=== PATIENT | male | born 1970 | race Caucasian/White ===

== ENCOUNTER → 2020-05-03 08:43 | Outpatient (CLI) | payer OTHER, SELFPAY ==
--- NOTE | ~2020-05-03 | XR_ITS ---
XR lumbar spine 2-3V DATE: 05/03/2020 09:06 INDICATION: Acute bilateral low back pain, right sciatica TECHNIQUE: AP, lateral, coned lateral lumbosacral views COMPARISON: None FINDINGS: No fracture or bone destruction is evident. The included lower thoracic and lumbar pedicles are intact. No spondylolisthesis. There is degenerative spurring in the lower thoracic spine. There is minimal degenerative disease at L2-3. There is moderate loss of interspace height and mild spurring at L4-5 and L5-S1 consistent with moder ate degenerative disease at these 2 levels. AP pedicle distance at L5 in particular appears relatively short; lumbar spinal stenosis is not exclu ded. The sacroiliac joints appear normal. IMPRESSION: Moderate degenerative disease at L4-5 and L5-S1, mild degenerative disease at L2-3 Cannot exclude lumbar spinal stenosis Reviewed, dictated and finalized at location B.
== END ==
PROVIDERS: PCP Physician Assistant; Visit Provider Family Medicine
DX: M54.41 Lumbago with sciatica, right side (principal); M51.37 Other intervertebral disc degeneration, lumbosacral region; M51.36 Other intervertebral disc degeneration, lumbar region
CPT/HCPCS: 72100

== ENCOUNTER 2024-05-30 05:22 | Emergency (ER) | payer BC, SELFPAY ==
[2024-05-30 05:24] VITALS: BP 126/82; PULSE 62; RESP 17; TEMP 36.3; O2SAT 100
[2024-05-30 05:57] VITALS: BP 128/81; PULSE 59; RESP 16; TEMP 36.6; O2SAT 100
--- NOTE | 2024-05-30 07:07 | ED_ITS ---
HPI - Back Pain/Injury General Chief Complaint: Back Pain/Injury Stated Complaint: lower back pain Time Seen by Provider: 05/30/24 07:05 Source: patient Mode of arrival: ambulatory Limitations: no limitations History of Present Illness HPI Narrative: Patient presents with low back pain on the left. He states he frequently has sciatica but denies any radiating nature to this pain. Pain 10/10 in severity. No abdominal pain. No paresthesias, IVDU, trauma/injury, cancer, fever, chronic steroid use, saddle anesthesia, or bowel/bladder incontinence. He took ibuprofen at approximately 10:45 and applied a transdermal patch. Patient has a PCP. Related Data Allergies Allergy/AdvReac Type Severity Reaction Status Date / Time No Known Allergies Allergy Verified 05/30/24 05:23 [facility] Past Medical History Medical History (Updated 05/31/24 @ 16:48 by Gracie Farley MD) Degeneration, intervertebral disc, lumbar Exam Narrative: GENERAL: Well-appearing, well-nourished, and in no acute distress. HEAD: Normocephalic, atraumatic. EYES: Non injected, non icteric ENT: Nares clear, no rhinorrhea or epistaxis. NECK: Supple. CHEST: Speaking in full sentences. No respiratory distress. HEART: Regular rate and rhythm. . ABDOMEN: Soft, nondistended. EXTREMITIES: Normal range of motion. No lower extremity edema. BACK: Straight leg test negative bilaterally. Demonstrates flexion and extension at the lumbar spine as well as rotational movement. No TTP of thoracic or lumbar spinous .processes which are midline w/o stepoffs. No paravertebral spasm. 5/5 bilateral strength with dorsi/plantar flexion, knee flexion/extension, hip flexion/adduction/abduction SKIN: Warm, dry, no rash. NEURO: No focal deficits. Alert and oriented x3. Sensation intact in bilateral lower extremities. Patient does have some medial thigh twitching/fasciculations during exam but not sustained. Has pain with hip flexion on the left but able to do so. PSYCH: Normal mood and affect. Course Vital Signs Vital signs: Vital Signs Temperature 97.3 F L 05/30/24 05:24 Pulse Rate 62 05/30/24 05:24 Respiratory Rate 17 05/30/24 05:24 Blood Pressure 126/82 05/30/24 05:24 Pulse Oximetry 100 05/30/24 05:24 Oxygen Delivery Room Air 05/30/24 05:24 Temperature 97.6 F 05/30/24 09:57 Pulse Rate 69 05/30/24 09:57 Respiratory Rate 16 05/30/24 09:57 Blood Pressure 117/78 05/30/24 09:57 Pulse Oximetry 100 05/30/24 09:57 Oxygen Delivery Room Air 05/30/24 05:24 MDM - Back Pain/Injury MDM Narrative Medical decision making narrative: Patient presents with low left sided back pain. States he has a history of frequent sciatica but denies any radiating quality of this pain. In the ED he is afebrile with VS Within normal limits. Back has no deformities, external skin changes, or signs of trauma. Curvature is within normal limits. No tenderness is noted on palpation of the spinous p rocesses which are midline. Lumbar paraspinal muscles are not tender under without spasm. Patient demonstrates flexion, extension, and [id number] rotation of the lumbar spine. Sensation to the lower extremities is normal bilaterally. Dorsi/plantar flexion is normal bilaterally. Straight leg raise test is negative bilaterally. They do not have any other red flags for fracture, malignancy, infection (e.g. spinal epidural abscess), or aortic/vascular: Age, no trauma, not on chronic steroids, no cancer, no fever, IV drug use, HIV, immunosuppression, abdominal pain, tearing pain, syncope, or urinary symptoms. Given this, will defer further imaging at this time. Analgesic medication ordered while in the ED and discharged with multimodal pain regimen prescriptions. Advised on follow up with PCP and ED return precautions. Differential Diagnosis Differential diagnosis: Likely lumbar radiculopathy, sciatica and strain of l umbar region Medical Records Attestation: I reviewed the patient's medical records. Medical records narrative: L spine Xray performed 2020 showed degenerative disease Discharge Plan Discharge Clinical Impression: Strain of lumbar region, Left lumbar pain Patient Disposition: Home, Self-Care Condition: Stable Instructions: Antibiotic Form, Low Back Strain (ED), Back Pain (ED), Lower Back Exercises (ED) Additional Instructions: the combination of medications, as we described,are to help balance rest with maintaining activity so you don't become more stiff/achy. Follow up with your primary care physician if not improving over 5-7 days. Return to the ER if you have increased pain in your back, you develop lower extremity weakness/numbness/paralysis, you have numbness or tingling in your private parts, or you are unable to control your ability to urinate/stool. Prescriptions: New lidocaine 4 % adhesive patch,medicated 1 patch topical DAILY PRN (Reason: pain) Qty: 10 0RF ibuprofen 600 mg tablet 600 mg PO TID PRN (Reason: pain) Qty: 30 0RF acetaminophen 500 mg capsule 1,000 mg PO Q6H PRN (Reason: pain) Qty: 30 0RF methocarbamol 750 mg tablet 750 mg PO HS Qty: 7 0RF Follow-up/Referrals: Roberta,GUALBERTO Purcell [Primary Care Provider] - Stand Alone Forms: Work/School Release IP Time of Disposition: 08:21
[2024-05-30 07:08] VITALS: BP 117/77; PULSE 57; RESP 15; O2SAT 100
[2024-05-30] MEDS: HYDROcodone/acetaminophen (*CRX) 5-325 MG TABLET 1 TAB PO (07:59)
[2024-05-30] MEDS: LIDOCAINE 5% PATCH 1 PATCH TRANSDERM (08:00)
[2024-05-30 08:01] VITALS: BP 121/83; PULSE 69; RESP 15; O2SAT 100
[2024-05-30] MEDS: KETOROLAC 30 MG/ML VIAL (*BKC) 15 MG IM (09:30)
[2024-05-30 09:32] VITALS: BP 115/76; PULSE 57; RESP 15; O2SAT 100
[2024-05-30 09:57] VITALS: BP 117/78; PULSE 69; RESP 16; TEMP 36.4; O2SAT 100
== END 2024-05-30 09:59 | disposition home or self-care (01) ==
PROVIDERS: Emergency Provider Student in an Organized Health Care Education/Training Program; PCP Physician Assistant
DX: S39.012A Strain of muscle, fascia and tendon of lower back, initial encounter (principal); X58.XXXA Exposure to other specified factors, initial encounter
CPT/HCPCS: 96372; 99283; A9270; J1885